=== PATIENT | female | born 1985 | race Caucasian/White ===

== ENCOUNTER 2022-05-28 11:08 | Inpatient (IN) | payer OTHER ==
[2022-05-28] MEDS ORDERED: hydrALAZINE 20 MG/ML VIAL SLOW IVP PRN ×3 (11:31→13:15)
[2022-05-28] MEDS ORDERED: Magnesium Sulfate 20 gm/500 ml 20 GM/500 ML BAG ONE (11:32)
[2022-05-28] MEDS ORDERED: Misoprostol 200 MCG TAB ONE (11:32)
[2022-05-28] MEDS ORDERED: Tranexamic Acid 1,000 MG/10 ML VIAL ONE (11:32)
[2022-05-28] MEDS ORDERED: Calcium Gluc 4.6 MEQ/10 ML (100 MG/ML) SLOW IVP PRN (11:33)
[2022-05-28] MEDS ORDERED: Methylergonovine 0.2 MG/ML VIAL ONE (11:33)
[2022-05-28] MEDS ORDERED: Lorazepam 2 MG/ML VIAL SLOW IVP PRN (11:33)
[2022-05-28] MEDS ORDERED: NS w/ Oxytocin 30 units 500 ML IV SCH (11:33)
[2022-05-28] MEDS ORDERED: Carboprost 250 MCG/ML AMP ONE (11:33)
[2022-05-28] MEDS ORDERED: NS w/ Oxytocin 30 units 500 ML ONE (11:38)
[2022-05-28] MEDS ORDERED: Methylergonovine 0.2 MG/ML VIAL IM SCH (11:45)
[2022-05-28] MEDS ORDERED: Magnesium Sulfate 20 gm/500 ml 20 GM/500 ML BAG IVPB SCH (11:45)
[2022-05-28 12:23] LABS: D-Dimer Test 3.47 mg/L FEU (0.19-0.50); INR-International Normal Ratio 0.9; Prothrombin Time 10.2 sec (9.5-12.1)
[2022-05-28 12:28] LABS: Hemoglobin 9.6 g/dL (12.0-15.5); Mean Corpuscular HGB CONC 35.4 g/dL (32.0-36.0); Mean Corpuscular Hemoglobin 33.3 pg (27.0-33.0); Mean Corpuscular Volume 94.1 fl (81.6-98.3); Mean Platelet Volume 10.5 fl (7.4-10.4); Platelet Count 293 10x3/uL (150-450); RBC Distribution Width 13.5 % (11.5-14.5); Red Blood Cell (RBC) Count 2.88 10x6/uL (3.90-5.03); White Blood Cell (WBC) Count 43.3 10x3/uL (3.5-10.5)
[2022-05-28] MEDS ORDERED: CEFAZOLIN 2 GM in Sodium Chloride 0.9% 100 ML IVPB STA (12:48)
[2022-05-28] MEDS ORDERED: Ondansetron PF 4 MG/2 ML Vial IVP PRN (13:13)
[2022-05-28] MEDS ORDERED: Promethazine HCl 25 MG/ML VIAL IM PRN (13:13)
[2022-05-28] MEDS ORDERED: Acetaminophen 500 MG TAB PO PRN (13:13)
[2022-05-28] MEDS ORDERED: Boostrix 0.5 ML (Tdap) VIAL (>/=7 yrs of age) IM ONE (13:15)
[2022-05-28] MEDS ORDERED: Milk Of Magnesia 30 ML UDCUP PO PRN (13:15)
[2022-05-28] MEDS ORDERED: Bisacodyl 10 MG SUPP PR PRN (13:15)
[2022-05-28] MEDS ORDERED: CEFAZOLIN 2 GM VIAL ONE (14:18)
[2022-05-28 16:12] LABS: Hemoglobin 7.6 g/dL (12.0-15.5); Mean Corpuscular HGB CONC 34.4 g/dL (32.0-36.0); Mean Corpuscular Hemoglobin 32.6 pg (27.0-33.0); Mean Corpuscular Volume 94.8 fl (81.6-98.3); Mean Platelet Volume 10.6 fl (7.4-10.4); Platelet Count 259 10x3/uL (150-450); RBC Distribution Width 13.4 % (11.5-14.5); Red Blood Cell (RBC) Count 2.33 10x6/uL (3.90-5.03); White Blood Cell (WBC) Count 28.8 10x3/uL (3.5-10.5)
[2022-05-28 19:06] VITALS: BMI 32.1
[2022-05-28] MEDS ORDERED: Ferrous Sulfate 325 MG TAB PO SCH (20:00)
[2022-05-28] MEDS: Docusate 100 MG CAP PO SCH (22:02)
[2022-05-29] MEDS: Ibuprofen 800 MG TAB PO SCH ×2 (02:41→03:51)
[2022-05-29 05:00] LABS: Hemoglobin 6.6 g/dL (12.0-15.5); Mean Corpuscular Hemoglobin 32.8 pg (27.0-33.0); Mean Corpuscular Volume 96.5 fl (81.6-98.3); Mean Platelet Volume 10.9 fl (7.4-10.4); Platelet Count 234 10x3/uL (150-450); RBC Distribution Width 13.7 % (11.5-14.5); Red Blood Cell (RBC) Count 2.01 10x6/uL (3.90-5.03)
[2022-05-29] MEDS ORDERED: Acetaminophen 500 MG TAB PO SCH (07:22)
[2022-05-29] MEDS ORDERED: diphenhydrAMINE 25 MG CAP PO SCH (07:22)
[2022-05-29] MEDS: Ferrous Sulfate 325 MG TAB PO SCH ×2 (08:06→17:54)
[2022-05-29] MEDS: Docusate 100 MG CAP PO SCH (08:06)
[2022-05-29 17:16] VITALS: BP 110/54; TEMP 98.4
[2022-05-30] MEDS: Ibuprofen 800 MG TAB PO SCH (07:15)
== END 2022-05-29 20:50 | disposition home or self-care (01) | DRG 769 ==
LOC: CSHLD/OP 11:08 → CSHLD 11:23 → CSHPP 21:45
PROVIDERS: ADMIT Obstetrics & Gynecology; ATTEND Obstetrics & Gynecology
PROC: 10D17Z9 Manual Extraction of Products of Conception, Retained, Via Natural or Artificial Opening (ICD-10-PCS; principal; 2022-05-28)
PROC: 30233N1 Transfusion of Nonautologous Red Blood Cells into Peripheral Vein, Percutaneous Approach (ICD-10-PCS; 2022-05-29)
DX: O72.2 Delayed and secondary postpartum hemorrhage (principal); D62 Acute posthemorrhagic anemia; Z79.899 Other long term (current) drug therapy; O90.81 Anemia of the puerperium
CPT/HCPCS: 36415; 36430; 51702; 85027; 85049; 85300; 85362; 85379; 85384; 85610; 85730; 86850; 86900; 86901; 88307; P9016